=== PATIENT | male | born 1940 | race Caucasian/White ===

== ENCOUNTER 2018-04-01 10:21 | Day surgery (SDC) | payer MEDICARE, MEDICAID ==
[~2018-04-01] VITALS: Ht 170.2 cm; Wt 77.0 kg
[2018-04-01] VITALS (12 sets, daily range): BP systolic 116–144; BP diastolic 67–93; PULSE 69–85; TEMP 98
[2018-04-01 10:53] LABS: HEMATOCRIT 39.7 % (42.0-52.0); HEMOGLOBIN 13.2 g/dl (13.5-18.0); MEAN CELL VOLUME 87 fl (80.0-100.0); MEAN CORPUSCULAR HEMOGLOBIN 29 pg (27.0-31.0); MEAN CORPUSCULAR HGB CONC 33 g/dl (33.0-37.0); PLATELET COUNT 234 K/mm3 (130-400); RED BLOOD COUNT 4.58 M/mm3 (4.20-5.60); REDCELL DISTRIBUTION WIDTH-CV 13.7 % (11.5-14.5)
[2018-04-01 11:00] LABS: INR 1.1 (0.8-3.0); PROTHROMBIN TIME 13.3 SECONDS (9.7-12.8)
[2018-04-01 11:02] LABS: CALCIUM 9.3 mg/dL (8.4-10.2); CREATININE, serum 1.18 mg/dL (0.66-1.25); POTASSIUM 3.8 mmol/L (3.4-5.0)
[2018-04-01] MEDS ORDERED: NITROSTAT0.4 MG/TAB SL (11:39)
[2018-04-01] MEDS ORDERED: PROAIR HFA0.09 MG/AC IH (11:39)
[2018-04-01] MEDS ORDERED: AMITRIPTYLINE H10 M1 PO (11:40)
[2018-04-01] MEDS ORDERED: ASPIRIN E.C. 8181 MG PO (11:40)
[2018-04-01] MEDS ORDERED: ZYRTEC 10MG10 MG PO (11:41)
[2018-04-01] MEDS ORDERED: EPA FISH OIL1 SGL PO (11:41)
[2018-04-01] MEDS ORDERED: PRILOSEC 20MG20 MG PO (11:42)
[2018-04-01] MEDS ORDERED: FLOMAX 0.40.4 MG/CAP PO (11:46)
[2018-04-01] MEDS ORDERED: TRIAMCINOLONE A15 GM TP (11:47)
== END 2018-04-01 19:44 | disposition home or self-care (01) ==
LOC: COL.CAR 10:21
PROVIDERS: Internal Medicine Cardiovascular Disease
DX: I25.10 Atherosclerotic heart disease of native coronary artery without angina pectoris (principal); R94.39 Abnormal result of other cardiovascular function study; I35.0 Nonrheumatic aortic (valve) stenosis; K58.9 Irritable bowel syndrome, unspecified; K21.9 Gastro-esophageal reflux disease without esophagitis; F41.9 Anxiety disorder, unspecified; R47.1 Dysarthria and anarthria; J32.9 Chronic sinusitis, unspecified; M19.90 Unspecified osteoarthritis, unspecified site; J30.9 Allergic rhinitis, unspecified; R01.1 Cardiac murmur, unspecified; Z90.49 Acquired absence of other specified parts of digestive tract; Z79.82 Long term (current) use of aspirin; Z86.73 Personal history of transient ischemic attack (TIA), and cerebral infarction without residual deficits; Z82.49 Family history of ischemic heart disease and other diseases of the circulatory system; Z82.61 Family history of arthritis
CPT/HCPCS: C1760; C1769; C1894; J2250; J3010; Q9967

== ENCOUNTER 2020-07-25 08:24 | Day surgery (SDC) | payer MEDICARE, MEDICAID ==
[2020-07-25] VITALS (13 sets, daily range): BP systolic 97–119; BP diastolic 55–75; PULSE 76–95; TEMP 97.9
[~2020-07-25] VITALS: Ht 170.2 cm; Wt 73.9 kg
[~2020-07-25 08:24] MED LIST: AMITRIPTYLINE H10 M1 PO; ASPIRIN E.C. 8181 MG PO; EPA FISH OIL1 SGL PO; FLOMAX 0.40.4 MG/CAP PO; NITROSTAT0.4 MG/TAB SL; PRILOSEC 20MG20 MG PO; PROAIR HFA0.09 MG/AC IH; TRIAMCINOLONE A15 GM TP; ZYRTEC 10MG10 MG PO
[2020-07-25 09:19] LABS: HEMOGLOBIN 11.2 g/dl (13.5-18.0); MEAN CELL VOLUME 90 fl (80.0-100.0); MEAN CORPUSCULAR HEMOGLOBIN 30 pg (27.0-31.0); MEAN CORPUSCULAR HGB CONC 33 g/dl (33.0-37.0); MEAN PLATELET VOLUME 10.1 fl (7.4-10.4); PLATELET COUNT 184 K/mm3 (130-400); RED BLOOD COUNT 3.79 M/mm3 (4.20-5.60); REDCELL DISTRIBUTION WIDTH-CV 13.8 % (11.5-14.5)
[2020-07-25 09:20] LABS: INR 1.3 (0.8-3.0); PROTHROMBIN TIME 14.3 SECONDS (9.7-12.8)
[2020-07-25 09:22] LABS: HEMATOCRIT 34.2 % (42.0-52.0)
[2020-07-25 09:30] LABS: CALCIUM 9.6 mg/dL (8.4-10.2); CREATININE, serum 1.33 (0.66-1.25)
[2020-07-25] MEDS ORDERED: COREG 3.123.125 MG/T PO (09:50)
[2020-07-25] MEDS ORDERED: LASIX 20MG TABL20 MG PO (09:51)
[2020-07-25] MEDS ORDERED: MOBIC15 MG PO (09:52)
[2020-07-25] MEDS ORDERED: THEO-24400 MG PO (09:53)
--- NOTE | 2020-07-25 11:03 | NUR ---
Pt to procedure,report to SHAZIA Reis.
--- NOTE | 2020-07-25 11:32 | NUR ---
SEE MERGE DOCUMENTATION FOR MEDICATION ADMINISTRATION AND INTRA/POST PROCEDURE SEDATION ASSESSMENTS.
--- NOTE | 2020-07-25 16:18 | NUR ---
Discharge instructions given to pt.Pt verbalizes understanding.INT removed,catheter tip intact.Pt escorted out via wheelchair by this nurse.
== END 2020-07-25 18:29 | disposition home or self-care (01) ==
LOC: COL.CAR
PROVIDERS: Internal Medicine Cardiovascular Disease
DX: I08.3 Combined rheumatic disorders of mitral, aortic and tricuspid valves (principal); K58.9 Irritable bowel syndrome, unspecified; K21.9 Gastro-esophageal reflux disease without esophagitis; F41.9 Anxiety disorder, unspecified; Z86.73 Personal history of transient ischemic attack (TIA), and cerebral infarction without residual deficits; I25.10 Atherosclerotic heart disease of native coronary artery without angina pectoris; R47.1 Dysarthria and anarthria; J30.2 Other seasonal allergic rhinitis; M19.90 Unspecified osteoarthritis, unspecified site; Z90.49 Acquired absence of other specified parts of digestive tract; Z88.5 Allergy status to narcotic agent; Z79.82 Long term (current) use of aspirin; J44.9 Chronic obstructive pulmonary disease, unspecified; F32.9 Major depressive disorder, single episode, unspecified; N40.0 Benign prostatic hyperplasia without lower urinary tract symptoms
CPT/HCPCS: J1644; J2704; Q9967